=== PATIENT | female | born 1965 | race Caucasian/White ===

== ENCOUNTER 2023-10-30 09:21 | Emergency (ER) | payer OTHER, SELFPAY ==
--- NOTE | 2023-10-30 09:25 | ED.URI ---
HPI - URI/Sore Throat General Chief Complaint: Upper Respiratory Infection Stated Complaint: Cold symptoms Time Seen by Provider: 10/30/23 09:24 Source: patient Mode of arrival: ambulatory Limitations: no limitations History of Present Illness HPI Narrative: Janel is a 58-year-old female patient presenting to the clinic today with complaints runny nose, sore throat, cough, and congestion x 4 days. She reports her sore throat has gotten better but now the congestion has settled in her chest. Cough is productive and she is bringing in yellow phlegm but is having clear nasal drainage. MD elicited complaint: cough, sore throat, nasal congestion and other (Chest congestion) Related Data Home Medications Medication Instructions Recorded Confirmed estradiol 0.5 mg tablet 0.5 mg PO DAILY 05/31/23 10/30/23 progesterone micronized 200 mg 200 mg PO DAILY 05/31/23 10/30/23 capsule Allergies Allergy/AdvReac Type Severity Reaction Status Date / Time No Known Allergies Allergy Verified 10/30/23 09:52 Review of Systems Review of Systems: Pertinent positives per HPI. Patient denies any fever, chills, rash, headache, visual changes, dizziness, shortness of breath, chest pain, palpitations, nausea, vomiting, diarrhea, constipation, abdominal pain, or any urinary issues. [facility] Past Medical History Medical History Anatomical narrow angle, bilateral preglaucoma Postmenopausal HRT (hormone replacement therapy) Vitamin D deficiency Surgical History Surgical History No pertinent past surgical history Family History Family History Father Lung cancer Mother Thyroid disease Hypertension Social History Social History Smoking status: Never smoker Second hand tobacco smoke exposure: No Alcohol intake: current Drinks per week: 4 Substance use: never Substance use type: does not use Lack of Transportation: No Lack of Food: Never True Current Housing: I Have Housing Concerned About Future Housing: No Difficulty Paying Gas/Electric Bills: No Difficulty Paying for Meds: No Currently Unemployed: No Education: Grade School Difficulty w/ Childcare or Family Care: No Living arrangements: with family Occupation/Education: occupation Gender identity (if verbalized by the patient): Female Sexual Orientation (if Verbalized by the Patient): Straight or Heterosexual Comments At the time of my signature, I reviewed and agree with the nursing past medical, surgical, social, and family history. There is no relevant family history pertinent to the patient complaint. Exam Narrative: General: Well-developed, well nourished, in no apparent distress Head: Normocephalic, atraumatic Eyes: Pupils equally round and reactive to light bilaterally, EOM intact, sclera and conjunctive clear, no discharge, lids normal Ears: TMs intact and clear, ear canals clear, no drainage, grossly hearing normal. Nose: Nares patent, clear nasal discharge, no inflammation, no sinus tenderness. Mouth: Oral pharynx without lesions or masses, good dentition, MMM. Postnasal drip Neck: Supple, trachea midline, no enlargement of anterior or posterior cervical nodes, no thyroid masses or goiter palpable. Cardio: Regular rate and rhythm, s1 and s2 normal, no murmur appreciated. Resp: Clear to auscultation bilaterally, no rhonchi, rales, wheezing or rubs Course Course Emergency Course: Portions of this record may have been created with voice recognition software. Level of Care: Express Care Visit Vital Signs Vital signs: Vital Signs Temperature 36.9 C 10/30/23 09:37 Pulse Rate 90 10/30/23 09:37 Respiratory Rate 16 10/30/23 09:37 Blood Pressure 127/94 H 0
[2023-10-30 09:37] VITALS: BP 127/94; PULSE 90; RESP 16; TEMP 36.9; O2SAT 90
== END 2023-10-30 10:10 | disposition home or self-care (01) ==
PROVIDERS: Emergency Provider Nurse Practitioner Family; PCP Physician Assistant Medical
DX: R09.82 Postnasal drip (principal); B34.9 Viral infection, unspecified; J06.9 Acute upper respiratory infection, unspecified
CPT/HCPCS: 87081; 87880; 99213; G0463